=== PATIENT | male | born 1980 | race Caucasian/White ===

== ENCOUNTER 2018-10-18 09:21 | Emergency (ER) | payer SELFPAY ==
[~2018-10-18] VITALS: Ht 162.6 cm; Wt 96.1 kg
[2018-10-18 09:23] VITALS: BP 116/82
== END 2018-10-18 11:23 | disposition home or self-care (01) ==
LOC: ED 11:10
DX: M79.672 Pain in left foot (principal)
CPT/HCPCS: 99283